=== PATIENT | female | born 1965 ===

== ENCOUNTER 2024-06-18 12:30 | Inpatient (IN) | payer OTHER ==
[~2024-06-18] VITALS: Ht 167.6 cm; Wt 87.1 kg
[2024-06-18] MEDS ORDERED: ATORVASTATIN CA10 MG PO (13:07)
[2024-06-18] MEDS ORDERED: TOPROL XL25 M1 PO (13:07)
[2024-06-18] MEDS ORDERED: HYDRALAZINE HCL10 MG PO (13:07)
[2024-06-18] MEDS ORDERED: LIPITOR20 MG PO (13:08)
[2024-06-18 13:31] VITALS: BP 160/90
[2024-06-18 13:32] LABS: RH POSITIVE
[2024-06-26] MEDS ORDERED: CEFAZOLIN SODIUM 1,000 MG VIAL IV ONE (11:00)
[2024-06-26] MEDS ORDERED: POVIDONE-IODINE 118 ML BOTT TOP ONE (11:00)
[2024-06-26] MEDS ORDERED: TRANEXAMIC ACID 100MG/1ML (1000MG) AMPUL IV ONE (11:00)
[2024-06-26] MEDS ORDERED: KETOROLAC TROMETHAMINE 60 MG VIAL IM ONE (11:00)
[2024-06-26] MEDS ORDERED: MORPHINE SULFATE 4 MG/ML VIAL IV ONE (11:00)
[2024-06-26] MEDS ORDERED: OxyCODONE HCL 5 MG TABLET (ROXICODONE) PO PRN (11:45)
[2024-06-26] MEDS ORDERED: ONDANSETRON HCL 2 MG/ML VIAL IV PRN (11:45)
[2024-06-26] MEDS ORDERED: MORPHINE SULFATE 4 MG/ML CARTRIDGE IV PRN (11:45)
[2024-06-26] MEDS ORDERED: SODIUM CHLORIDE 0.45 % 1,000 ML IV SCH (11:45)
[2024-06-26] MEDS ORDERED: ACETAMINOPHEN 500 MG GEL..CAP PO SCH (12:00)
[2024-06-26] MEDS ORDERED: CEFAZOLIN SODIUM 1,000 MG VIAL IV SCH (17:00)
[2024-06-26] MEDS ORDERED: GABAPENTIN 300 MG CAPSULE PO SCH (17:00)
[2024-06-26] MEDS ORDERED: CEFAZOLIN SODIUM 1,000 MG VIAL ONE (18:44)
[2024-06-26 19:16] VITALS: BP 150/77; O2SAT 100
[2024-06-27 00:28] VITALS: BP 110/71; O2SAT 98
[2024-06-27 06:36] LABS: HEMATOCRIT 33.3 % (36.0-45.00); HEMOGLOBIN 11.6 g/dL (12.0-15.00); MEAN CELL VOLUME 87.4 fL (80.00-100.00); MEAN CORPUSCULAR HEMOGLOBIN 30.3 pg (27.00-32.0); MEAN CORPUSCULAR HGB CONC 34.7 g/dl (32.0-36.0); PLATELET COUNT 192 K/uL (150-450); RED BLOOD COUNT 3.81 M/uL (4.00-6.00); RED CELL DISTRIBUTION WIDTH 14.8 % (11.5-14.5)
[2024-06-27 08:14] VITALS: BP 133/79; O2SAT 98
[2024-06-27] MEDS ORDERED: PERCOCET 5-3251 EACH PO (08:16)
[2024-06-27] MEDS ORDERED: DUI500 PO (08:16)
[2024-06-27] MEDS ORDERED: ELIQUIS2.5 MG PO (08:16)
[2024-06-27] MEDS ORDERED: AMLODIPINE BESYLATE 5 MG TABLET PO SCH (09:00)
[2024-06-27] MEDS ORDERED: SENNOSIDES 1 TAB TABLET PO SCH (09:00)
[2024-06-27] MEDS ORDERED: METOPROLOL SUCCINATE 50 MG TAB.SR.24H PO SCH (09:00)
[2024-06-27] MEDS ORDERED: IRBESARTAN 300 MG TABLET PO SCH (09:00)
[2024-06-27] MEDS ORDERED: APIXABAN 2.5 MG TABLET PO SCH (09:00)
[2024-06-27 12:20] LABS: BILIRUBIN TOTAL 0.55 mg/dL (0.3-1.2); CALCIUM 8.7 mg/dL (8.5-10.1); CREATININE SERUM 0.96 mg/dL (0.55-1.02); GFR 59.28; GLOBULINA 3.5 G/DL (2.4-3.5); POTASSIUM 4.24 mEq/L (3.5-5.1); TOTAL PROTEIN 6.5 gm/dL (6.4-8.2)
[2024-06-27] MEDS ORDERED: Cyanocobalamin/Mecobalamin 1 TAB.SL SL NR (15:00)
[2024-06-27] MEDS ORDERED: IRON FUM,PS/FOLIC ACID/VITC/B3 1 CAP CAPSULE PO NR (15:00)
[2024-06-27 16:52] VITALS: BP 130/70; O2SAT 96
[2024-06-27] MEDS ORDERED: VITAMIN B COMPLEX 1 EACH PO SCH (17:00)
[2024-06-27] MEDS ORDERED: SOD FERRIC GLUC COMPLX/SUCROSE 62.5 MG/5 ML AMPUL IV SCH (17:00)
[2024-06-28 00:20] VITALS: BP 145/80; O2SAT 97
[2024-06-28 06:24] LABS: HEMATOCRIT 32.7 % (36.0-45.00); HEMOGLOBIN 10.9 g/dL (12.0-15.00); MEAN CORPUSCULAR HEMOGLOBIN 29.6 pg (27.00-32.0); MEAN CORPUSCULAR HGB CONC 33.2 g/dl (32.0-36.0); PLATELET COUNT 181 K/uL (150-450); RED BLOOD COUNT 3.68 M/uL (4.00-6.00); RED CELL DISTRIBUTION WIDTH 14.3 % (11.5-14.5)
[2024-06-28] MEDS ORDERED: Cyanocobalamin/Mecobalamin 1 TAB.SL SL SCH (09:00)
[2024-06-28] MEDS ORDERED: IRON FUM,PS/FOLIC ACID/VITC/B3 1 CAP CAPSULE PO SCH (09:00)
[2024-06-28 09:04] VITALS: BP 169/92; O2SAT 99
[2024-06-28 17:16] VITALS: BP 129/76; O2SAT 98
== END 2024-06-28 21:13 | DRG 470 ==
LOC: O/R 06-26 05:00 → SURG 06-26 05:00 → SURH 06-26 12:30 → SURG 06-26 14:33 → SURH 06-26 17:30 → SURG 06-28 21:13
PROVIDERS: ADMIT Orthopaedic Surgery; ATTEND Orthopaedic Surgery
PROC: 0QUD0KZ Supplement Right Patella with Nonautologous Tissue Substitute, Open Approach (ICD-10-PCS; 2024-06-26)
PROC: 0SRC0J9 Replacement of Right Knee Joint with Synthetic Substitute, Cemented, Open Approach (ICD-10-PCS; principal; 2024-06-26 17:30)
DX: M17.11 Unilateral primary osteoarthritis, right knee (principal); M80.061A Age-related osteoporosis with current pathological fracture, right lower leg, initial encounter for fracture; D62 Acute posthemorrhagic anemia; M85.461 Solitary bone cyst, right tibia and fibula; I10 Essential (primary) hypertension; E78.5 Hyperlipidemia, unspecified